=== PATIENT | female | born 1965 | race Caucasian/White ===

== ENCOUNTER 2016-07-19 11:04 | Emergency (ER) | payer OTHER ==
[~2016-07-19] VITALS: Ht 162.6 cm; Wt 61.2 kg
[~2016-07-19 11:04] MED LIST: BISACODYL SUPP10 MG; BONIVA; BUSPAR; COLACE100 MG; COMPAZINE10 MG PO; CYMBALTA60 MG PO; DOXEPIN 10 MG C10 MG GT; FENTANYL 1100 MCG/HR TP; HYDROXYZINE HCL25 M1 PO; LEVOTHROID; LEVOTHYROXINE 0.15MG PO; LIDODERM 5%1 PATCH; LOPERAMIDE 2 MG2 M1 PO; LOVASTATIN 20 M20 MG PO; LYRICA 50 MG50 MG PO; MAG-OX 400 TAB400 M1 PO; MEDROLDOSEPACK PO; MELATONIN3 MG PO; MIGRAINE; MIRALAX17 GM; NAPROSYN500 MG PO; NASONEX17 GM; NORCO 5-325 TA1 EACH PO; NORFLEX100 MG PO; OXYCONTIN20 M1 PO; PHENERGAN 25 MG25 M1 PO; PHENERGAN25 M1 RC; PREMARIN0.625 MG PO; PROAIR HFA8.5 GM; REQUIP4 MG PO; RIZATRIPTAN5 M1 PO; SINGULAIR 10 MG10 M1 PO; TOPAMAX50 MG PO; XANAX XR1 MG PO; ZANTAC 150MG T150 MG PO; ZYRTEC10 MG PO; [UNRECOGNIZED DRUG - OTHER] MM
[2016-07-19] MEDS ORDERED: MOBIC15 MG PO (13:33)
[2016-07-19 14:06] VITALS: BP 130/67
== END 2016-07-19 14:18 | disposition home or self-care (01) ==
LOC: ER 11:04
DX: G89.29 Other chronic pain (principal); F11.23 Opioid dependence with withdrawal; G43.909 Migraine, unspecified, not intractable, without status migrainosus; G25.81 Restless legs syndrome; J45.909 Unspecified asthma, uncomplicated; F12.10 Cannabis abuse, uncomplicated; K21.9 Gastro-esophageal reflux disease without esophagitis; M81.0 Age-related osteoporosis without current pathological fracture; E03.9 Hypothyroidism, unspecified; I25.10 Atherosclerotic heart disease of native coronary artery without angina pectoris; M06.9 Rheumatoid arthritis, unspecified; Z90.89 Acquired absence of other organs; F31.9 Bipolar disorder, unspecified; G47.00 Insomnia, unspecified; F17.210 Nicotine dependence, cigarettes, uncomplicated; M79.7 Fibromyalgia; Z90.710 Acquired absence of both cervix and uterus; Z98.61 Coronary angioplasty status; Z88.1 Allergy status to other antibiotic agents; Z88.5 Allergy status to narcotic agent; Z88.8 Allergy status to other drugs, medicaments and biological substances